=== PATIENT | male | born 1980 | race Caucasian/White ===

== ENCOUNTER 2017-04-09 15:10 | Emergency (ER) | payer OTHER | END 2017-04-09 17:39 | disposition home or self-care (01) | LOC: D.ER 15:10 | DX: K64.4 Residual hemorrhoidal skin tags (principal) ==

== ENCOUNTER 2017-10-31 19:49 | Emergency (ER) | payer OTHER | END 2017-10-31 22:00 | disposition home or self-care (01) | LOC: D.ER 19:49 | DX: J02.9 Acute pharyngitis, unspecified (principal); F17.200 Nicotine dependence, unspecified, uncomplicated ==

== ENCOUNTER 2018-02-09 18:54 | Emergency (ER) | payer OTHER ==
[2018-02-09 22:35] LABS: BASOPHILS 0.1 % (0-2); EOSINOPHILS 6.4 % (0-7); HEMATOCRIT 45.7 % (42.0-54.0); HEMOGLOBIN 15.9 g/dL (13.5-17.5); IMMATURE GRANULOCYTES 0.6 % (0-5); MCH 31.4 pg (26.0-34.0); MCHC 34.8 g/dL (31.0-37.0); MCV 90.1 fL (80.0-100.0); MEAN PLATELET VOLUME 10.4 fL (7.4-10.4); MONOCYTES 10.5 % (2-11); NEUTROPHILS 46.4 % (40-80); PLATELET COUNT 212 10x3/uL (130-400); RBC 5.07 10x6/uL (4.20-6.10); RDW 12.4 % (11.5-14.5); WBC 10.3 10x3/uL (4.8-10.8)
[2018-02-09 22:51] LABS: ALBUMIN 3.9 g/dL (3.4-5.0); ALKALINE PHOSPHATASE 74 U/L (46-116); ALT (SGPT) 135 U/L (10-68); BILIRUBIN - TOTAL 0.29 mg/dL (0.2-1.3); CALC OSMOLALITY 280 mosm/kg (275-300); CALCIUM 8.8 mg/dL (8.5-10.1); CARBON DIOXIDE 26.7 mmol/L (21.0-32.0); CHLORIDE - SERUM 103 mmol/L (98-107); CREATININE - SERUM 1.1 mg/dL (0.6-1.3); GLUCOSE 129 mg/dL (74-106); POTASSIUM - SERUM 3.7 mmol/L (3.5-5.1); PROTEIN - SERUM 8.2 g/dL (6.4-8.2); SODIUM 140 mmol/L (136-145); UREA NITROGEN 13 mg/dL (7-18); eGFR NON AFRICAN AMERICAN 81 mL/min (90-120)
== END 2018-02-10 00:10 | disposition home or self-care (01) ==
LOC: D.ER 18:54
PROVIDERS: Physician Assistant
DX: R07.89 Other chest pain (principal)

== ENCOUNTER 2019-07-12 20:38 | Emergency (ER) | payer MEDICAID ==
[~2019-07-12] VITALS: Ht 188 cm; Wt 109.1 kg
[2019-07-12 20:51] VITALS: Ht 188 cm; Wt 109.1 kg
[2019-07-12 21:11] LABS: BASOPHILS 0.2 % (0-2); EOSINOPHILS 3.8 % (0-7); HEMATOCRIT 41.7 % (42.0-54.0); LYMPHOCYTES 31.4 % (15-50); MCH 30.5 pg (26.0-34.0); MCV 84.8 fL (80.0-100.0); MEAN PLATELET VOLUME 9.4 fL (7.4-10.4); MONOCYTES 11.6 % (2-11); PLATELET COUNT 187 10x3/uL (130-400); RBC 4.92 10x6/uL (4.20-6.10); RDW 12.9 % (11.5-14.5); WBC 11.6 10x3/uL (4.8-10.8)
[2019-07-12 21:21] LABS: APTT 25.3 SECONDS (22.8-39.4); INR 0.99 (0.85-1.17); PROTIME 12.6 SECONDS (11.6-15.0)
[2019-07-12 21:23] LABS: ALBUMIN 4.2 g/dL (3.4-5.0); ALKALINE PHOSPHATASE 63 U/L (46-116); ALT (SGPT) 49 U/L (10-68); CALC OSMOLALITY 281 mosm/kg (275-300); CALCIUM 8.9 mg/dL (8.5-10.1); CARBON DIOXIDE 30.2 mmol/L (21.0-32.0); CHLORIDE - SERUM 106 mmol/L (98-107); GLUCOSE 101 mg/dL (74-106); POTASSIUM - SERUM 3.8 mmol/L (3.5-5.1); SODIUM 142 mmol/L (136-145); UREA NITROGEN 11 mg/dL (7-18); eGFR NON AFRICAN AMERICAN 89 mL/min (90-120)
[2019-07-12 21:34] LABS: CREATINE KINASE 231 UL (21-232); PRO BNP 111 pg/mL (0-125)
[2019-07-12 21:36] LABS: TROPONIN-I < 0.017 ng/mL (0.000-0.060)
[2019-07-12] MEDS ORDERED: ALBUTEROL SULF8.5 GM INH (22:27)
[2019-07-12 22:51] VITALS: BP 130/83
== END 2019-07-12 22:51 | disposition home or self-care (01) ==
LOC: D.ER 20:38
PROVIDERS: Family Medicine
DX: R06.00 Dyspnea, unspecified (principal); F41.9 Anxiety disorder, unspecified

== ENCOUNTER 2019-07-16 12:49 | Emergency (ER) | payer MEDICAID ==
[~2019-07-16] VITALS: Ht 188 cm; Wt 109.3 kg
[~2019-07-16 12:49] MED LIST: ALBUTEROL SULF8.5 GM INH
[2019-07-16 13:09] VITALS: Ht 188 cm; Wt 109.3 kg
[2019-07-16 15:07] VITALS: BP 119/88
== END 2019-07-16 16:40 | disposition home or self-care (01) ==
LOC: D.ER 12:49
DX: R20.0 Anesthesia of skin (principal)

== ENCOUNTER 2020-03-20 22:27 | Emergency (ER) | payer OTHER ==
[~2020-03-20] VITALS: Ht 188 cm; Wt 113.6 kg
[2020-03-20 22:41] VITALS: BP 131/76; Ht 188 cm; Wt 113.6 kg
[2020-03-20] MEDS ORDERED: EC-NAPROSYN500 MG PO (23:09)
[2020-03-20] MEDS ORDERED: DOXYCYCLINE HY100 M2 PO (23:09)
== END 2020-03-20 23:16 | disposition home or self-care (01) ==
LOC: D.ER 22:27
DX: S30.861A Insect bite (nonvenomous) of abdominal wall, initial encounter (principal); W57.XXXA Bitten or stung by nonvenomous insect and other nonvenomous arthropods, initial encounter; Y93.9 Activity, unspecified; Y92.9 Unspecified place or not applicable; M77.9 Enthesopathy, unspecified

== ENCOUNTER 2020-06-04 01:55 | Emergency (ER) | payer OTHER ==
[~2020-06-04] VITALS: Ht 188 cm; Wt 113.4 kg
[~2020-06-04 01:55] MED LIST changes: +DOXYCYCLINE HY100 M2 PO; +EC-NAPROSYN500 MG PO
[2020-06-04 02:01] VITALS: Ht 188 cm; Wt 113.4 kg
[2020-06-04 02:24] LABS: BASOPHILS 0.2 % (0-2); EOSINOPHILS 4.6 % (0-7); HEMATOCRIT 43.7 % (42.0-54.0); HEMOGLOBIN 14.8 g/dL (13.5-17.5); IMMATURE GRANULOCYTES 0.6 % (0-5); LYMPHOCYTES 39.9 % (15-50); MCH 30.6 pg (26.0-34.0); MCHC 33.9 g/dL (31.0-37.0); MCV 90.3 fL (80.0-100.0); MEAN PLATELET VOLUME 9.1 fL (7.4-10.4); MONOCYTES 10.9 % (2-11); NEUTROPHILS 43.8 % (40-80); PLATELET COUNT 194 10x3/uL (130-400); RBC 4.84 10x6/uL (4.20-6.10); WBC 11.2 10x3/uL (4.8-10.8)
[2020-06-04 02:35] LABS: CALC OSMOLALITY 279 mosm/kg (275-300); CALCIUM 8.5 mg/dL (8.5-10.1); CARBON DIOXIDE 28.7 mmol/L (21.0-32.0); CHLORIDE - SERUM 103 mmol/L (98-107); CREATININE - SERUM 1.3 mg/dL (0.6-1.3); GLUCOSE 104 mg/dL (74-106); POTASSIUM - SERUM 3.2 mmol/L (3.5-5.1); SODIUM 140 mmol/L (136-145); UREA NITROGEN 15 mg/dL (7-18); eGFR NON AFRICAN AMERICAN 65 mL/min (90-120)
[2020-06-04 02:38] LABS: INR 0.96 (0.85-1.17); PROTIME 12.7 SECONDS (11.6-15.0)
[2020-06-04 02:39] LABS: APTT 26.9 SECONDS (22.8-39.4)
[2020-06-04 02:40] LABS: D-DIMER-QUANTITATIVE 0.28 ug/mLFEU (0.20-0.54)
[2020-06-04 02:52] LABS: ALBUMIN 4.1 g/dL (3.4-5.0); ALKALINE PHOSPHATASE 68 U/L (30-120); ALT (SGPT) 89 U/L (10-68); BILIRUBIN - TOTAL 0.31 mg/dL (0.2-1.3); CREATINE KINASE 437 UL (21-232); PRO BNP 42 pg/mL (0-125); TROPONIN-I < 0.017 ng/mL (0.000-0.060)
[2020-06-04] MEDS ORDERED: STERAPRED DS 1010 MG PO (03:03)
[2020-06-04] MEDS ORDERED: AUGMENTIN 875-11 TAB PO (03:03)
[2020-06-04 03:20] VITALS: BP 128/92
== END 2020-06-04 03:20 | disposition home or self-care (01) ==
LOC: D.ER 01:55
PROVIDERS: Family Medicine
DX: J20.9 Acute bronchitis, unspecified (principal); Z72.0 Tobacco use; R06.02 Shortness of breath